=== PATIENT | male | born 2000 ===

== ENCOUNTER 2021-03-13 16:59 | Emergency (ER) | payer OTHER ==
[~2021-03-13] VITALS: Ht 180.3 cm; Wt 60.8 kg
[2021-03-13 17:10] VITALS: BP 101/62
== END 2021-03-14 02:00 | disposition left against medical advice (07) ==
LOC: ER 16:59
DX: M54.9 Dorsalgia, unspecified (principal); Z53.21 Procedure and treatment not carried out due to patient leaving prior to being seen by health care provider